=== PATIENT | female | born 1970 | race Caucasian/White ===

== ENCOUNTER 2016-12-02 20:23 | Emergency (ER) | payer OTHER ==
[~2016-12-02] VITALS: Ht 175.3 cm; Wt 90.0 kg
[2016-12-02 20:29] VITALS: BP 150/100; PULSE 91; RESP 16; O2SAT 99
--- NOTE | 2016-12-02 21:22 | ED.REPORT ---
HPI-Altered Mental Status Date of Service Dec 02, 2016 ED Provider: Marques Knutson MD The patient is a 46 year old female who presents to the ED via EMS due to altered mental status after smoking marijuana. Per EMS, the pt took off all of her clothing and ran naked through the park. She does not specifically recall the incident and states that she is very embarrassed and quite thirsty. She denies any other symptoms at the ED. She had one beer with lunch today. Nursing Notes Stated Complaint: ALTERED MENTAL STATUS Chief Complaint: Substance Abuse Nursing Notes Reviewed: Yes ([employer], meds not reconciled) Allergies: Coded Allergies: No Known Allergies (Unverified , 12/02/16) General Time Seen by MD: 21:06 Chief Complaint Other (altered mental status ) Hx Obtained From: Patient Arrived By: Ambulance Sudden in Onset?: Yes Onset Occurred: Just prior to arrival Context of Onset: Illicit drug use Symptom Duration: Since onset Severity: Current: No pain currently Recent Healthcare: No recent doctor visit, No recent hospitalization Similar Sx Previous: No Past Medical History Past Medical History denies Past Surgical History toe surgery Smoking History Never Smoker Social History Alcohol Use: "Social" Drug Use: THC Other Social History: Good social support, , Local resident Ambulatory Status Independent Review of Systems Psychiatric: Reports: Change mental status Complete sys rev & neg: except as marked. Physical Exam Initial Vital Signs Vital Signs (First) Date Time Temp Pulse Resp B/P Pulse Ox O2 Delivery O2 Flow Rate FiO2 12/02/16 20:29 36.7 91 16 150/100 99 Room Air Initial VS: Reviewed, Vital signs normal Abdomen / GI: Soft, Non-tender, No guarding, No rebound General/Constitutional: Awake, Alert, Cooperative giggly mildly intoxicated pleasantly high largest complaint is embarrassment and thirst Head / Eyes: Atraumatic, Normocephalic, PERRL Neck: Atraumatic, Supple, No meningismus Respiratory / Chest: Atraumatic, Breath sounds NL, Breath sounds = bilat Cardiovascular: Heart rate NL, Regular rhythm, Heart sounds NL Neurologic: Oriented X3, Speech NL, No motor deficits Interpretation & Diagnostics Lab Results Interpretation Test 12/02/16 20:43 Hold Urine Received (Received) Lab Results Interpretation: Udip postive for THC, otherwise negative Re-Eval/Medical Decision Med Decision/Clinical Course This is a 46-year-old female who was camping and admitted to smoking marijuana, and became confused, to call far closed, somewhat agitated a campground to the point that enforcement officers were called. The patient was then brought to the ED. She is actually much better, states she is very embarrassed, but states this is only marijuana. She denies using any other recreational drugs, reports it was marijuana by local shop. The patient has no complaints of an apartment. She is happy and content and has no complaints, except for being embarrassed. She has not agitated, she has reasonable insight and judgment. She is not suicidal or homicidal. She is able to give a good history, and when the arrives that she has been much back to normal. The rest of her physical exam was normal. Urine tox is positive only for THC. The patient remained calm and cooperative throughout the ED. This being high, she is pleasantly so. Her speech is normal, gait is normal, and cooperative. When the remaining arrives, she has been doing well long enough, indicates she is pretty much back to normal and is comfortable taking her home. I am not finding indication for extensive laboratory testing. Routine precautions reviewed. Patient's discharge good condition in the company of the . Source of Hx: Old records Differential Diagnosis: Negative: Carbon monoxide poisoning, Cerebrovascular accident, Closed head injury, Congestive heart failure, Dehydration, Delirium tremens, Hypercalcemia, Hyperthermia, Hypoglycemia, Intracerebral hemorrhage, Medication toxicity, Pseudoseizure, Seizure disorder, Subarachnoid hemorrhage, Syncope Counseled Regarding: Diagnosis, Lab results, Need for follow-up, When/why to return to ED Patient Discharge & Departure Impression: Primary Impression: Cannabis intoxication Complication of substance-induced condition: uncomplicated Qualified Code: F12.920 - Cannabis use, unspecified with intoxication, uncomplicated Additional Impression: Substance abuse Disposition: Home Discharge Condition All VS Reviewed: Yes Condition: Stable Additional Instructions: 1. You were brought to the emergency department following altered behavior that occurred after using marijuana. 2. Your urine tox revealed only marijuana. 3. Return to the emergency department if new or worsening symptoms occur. Referrals: [facility] Scribe Attestation Portion of this note were transcribed by Trish Wyatt. I, Dr. Knutson, personally performed the history, physical exam, and medical decision-making: I reviewed and confirmed the accuracy for the information in the transcribed note. Signed by: estevan Myers, 12/02/16 1029 copies to: [facility] Marques Knutson MD Dec 02, 2016 21:22 Trish Wyatt Dec 02, 2016 21:31
[2016-12-02 23:11] VITALS: BP 118/76; PULSE 77; RESP 14; O2SAT 99
== END 2016-12-02 23:12 | disposition home or self-care (01) ==
LOC: SED 20:23 → EDBD 20:23 → EDSEX 20:23 → SED 23:12
DX: F12.129 Cannabis abuse with intoxication, unspecified (principal)

== ENCOUNTER 2016-12-04 19:45 | Inpatient (IN) | payer OTHER ==
[~2016-12-04] VITALS: Ht 182.9 cm; Wt 90.9 kg
--- NOTE | 2016-12-04 19:50 | ED.REPORT ---
HPI-Psychiatric Illness Date of Service Dec 04, 2016 ED Provider: Marques Knutson MD Patient is a 46 year old female presents to the ED via EMS after threatening suicide this evening. Per police report, officers were dispatched at 1830 after her reported that she was hysterical and having a psychotic break down. Her stated that she was threatening to harm family as well as threatening to kill herself. Her reports that she has not slept in days and she admits to having smoked weed prior to this incident. After police arrived she continually made references to god and the bible, also stating that god wanted the deputies to "kill the god out of her". She held her breath out of anger multiple times during the police interactions in an attempt to suffocate herself. The patient was restrained during the incident after becoming violent with police officials. EMS reports that they have been called to deal with the patient 4x times this week. Patient was seen in the ED on 12/02 under similar circumstances, after she was found running around naked at a local campsite. This behavior was attributed to the patient recently smoking marijuana, with the Utox negative for all other substances. On arrival to the ED today the patient remembers being seen in the ED and states that "the marijuana did it" and that it was "funny weed". She claims that marijuana is "god's medicine". The patient reports that her forced her to use marijuana again and that she was "locked in bed all day". Patient reports that she has "kids in her head" and that she can hear the voice of god. She states " I have Asperger syndrome, Austism, and I am god". Patient denies a history of bipolar disorder or any other psychiatric diagnosis. She denies recent cough or illness. Nursing Notes Stated Complaint: MENTAL HEALTH EVAL Nursing Notes Reviewed: Yes ([employer], [employer] not reconciled) Allergies: Coded Allergies: No Known Allergies (Unverified , 12/04/16) Scheduled Lisinopril / HCTZ 10-12.5 mg (Lisinopril / HCTZ 10-12.5 mg) 1 Each Tablet Unknown Dose PO DAILY General Time Seen by MD: 19:49 Chief Complaint Bizarre behavior, Suicidal ideation Hx Obtained From: Other family..., EMS, Police Unable to Obtain Hx: Mental status (limited by patient's mental status) Arrived By: Ambulance Onset Occurred: 1 - 4 hours ago Context of Onset: Marijuana use Symptom Duration: Since onset Recent Healthcare: Recent doctor visit Similar Sx Previous: Yes Risk-Psychiatric Illness Suicide Risk Stratification RF Statements: Risk factors reviewed Past Medical History Past Medical History Notes: Patient was seen in the ED in recent days having had bizarre, agitated behavior following cannabis use at a campground, brought by police. Symptoms rapidly resolved, and patient was D/C home with . Past Medical History denies Past Surgical History toe surgery Smoking History Never Smoker Social History Alcohol Use: "Social" Drug Use: THC Other Social History: Good social support, , Local resident Ambulatory Status Independent Review of Systems Unable to Obtain ROS Mental status Physical Exam Initial Vital Signs Vital Signs (First) Date Time Temp Pulse Resp B/P Pulse Ox O2 Delivery O2 Flow Rate FiO2 12/04/16 19:56 36.8 98 18 174/107 96 Room Air Initial VS: Reviewed, Unavailable (no vitals on chart, ordered) Head / Eyes: Atraumatic, Normocephalic, PERRL ENT: Mucous membranes moist, Conjunctiva normal, No scleral icterus Respiratory: Breath sounds normal, Clear to auscultation, No respiratory distress Cardiovascular: Regular rate & rhythm, Heart sounds normal, Intact distal pulses Abdomen / GI: Soft, Non-tender Extremities: Vascular intact, Neuro intact, No swelling, No tenderness General/Constitutional: Awake (wide awake), Alert Neurologic: Oriented X3, No motor deficits, No sensory deficits No focal deficits Abnormal Mood/Affect: Positive: Pressured speech (and disorganized.) Patient is hyper zoroastrian. Talks about voices although it is unclear if these are auditory. She shows limited insight and judgment. She is significantly worse in comparison to previous ED visits. Skin: Color NL, Warm, Dry Bruising is present from previous ED visit with no change. No new trauma since previous ED visit. Interpretation & Diagnostics Lab Results Interpretation Result Diagram: 12/04/16202112/04/162021 Test 12/04/16 20:22 White Blood Count 8.2th/mm3 (3.8-10.1) Red Blood Count 4.92mil/mm3 (3.90-5.20) Hemoglobin 14.6g/dL (12.0-15.6) Hematocrit 42.2% (35.0-46.0) Mean Corpuscular Volume 85.8fL (81-100) Mean Corpuscular Hemoglobin 29.7pg (27.0-35.0) Mean Corpuscular Hemoglobin Concent 34.6% (32.0-37.0) Red Cell Distribution Width 13.4% (12.3-15.4) Platelet Count 200bil/L (150-400) Neutrophils (%) (Auto) 66.3% (40-74) Lymphocytes (%) (Auto) 22.5% (14-46) Monocytes (%) (Auto) 9.8% (4-12) Eosinophils (%) (Auto) 0.9% (0-5) Basophils (%) (Auto) 0.4% (0-3) Sodium Level 140mEq/L (134-144) Potassium Level 3.3mEq/L (3.5-5.2) Chloride Level 101mEq/L (97-108) Carbon Dioxide Level 20mmol/L (18-29) Blood Urea Nitrogen 7mg/dL (6-24) Creatinine 0.90mg/dL (0.57-1.00) Estimat Glomerular Filtration Rate 97mL/min (>59) Glucose Level 89mg/dL (60-99) Calcium Level 9.9mg/dL (8.5-10.1) Total Bilirubin 0.9mg/dL (0.0-1.2) Aspartate Amino Transf (AST/SGOT) 27U/L (0-50) Alanine Aminotransferase (ALT/SGPT) 20U/L (0-32) Alkaline Phosphatase 62U/L (25-150) Total Protein 7.8g/dL (6.4-8.4) Albumin 4.4g/dL (3.4-5.0) Thyroid Stimulating Hormone (TSH) 1.160uIU/mL (0.450-4.500) Human Chorionic Gonadotropin, Qual 0.572 (Negative) Hold Domingo Top Tube Received (Received) Alcohols < 10mg/dL (0-10) Lab Results Interpretation: CBC normal CMP normal U tox positive for marijuana Alcohol [address] Head Interpretation IMPRESSION: Negative head CT. Dictated by: Pool Abbott M.D. on 12/04/2016 at 21:23 Approved by: Pool Abbott M.D. on 12/04/2016 at 21:24 Study: Head CT no contrast Interpretation / Wet Read by: Interpret - Radiologist Re-Eval/Medical Decision Med Decision/Clinical Course This is a 46-year-old female brought by EMS after being agitated, combative, and suicidal-please see police affidavit. The police had to physically restrain her, but she is still trying to hit her head and kill herself, please see their note she is hyperreligious God voices and delusional and psychotic. This is a patient seen 4 days ago with fever behavior, she was mildly agitated, naked lying on a campground-and the police did have to bring her in, which point she and her stated it was secondary to marijuana-and here in the emergency department he was calm and collected and not psychotic. She was observed, and ultimately discharged. EMS indicates he had a total of 4 calls for her past few days, this one being the fourth. Today the patient is much more frankly psychotic and possibly manic - she has pressured speech, disorganized, as hyperreligious references to believe she is gone. She then changes and thinks she has Paula Trump. She is disorganized, has little no insight. She talks about the marijuana again. At this point labs were drawn. Labs are normal, CT of the head was normal. U tox was obtained via cath, and is positive only for marijuana. The patient had several escalations of behavior, making him more restless agitated and was successfully talked down, but a she jumped out of bed, and ran into another patient's room claiming that the patient in the room was her father (he was not), and a code Hartmann had to be called, the patient was placed in four point restraints and given chemical sedation-the patient was required for points, as there were no staff available for the seclusion room option alone. Given the use of 4 points, chemical sedation was administered. Ketamine was used at the lowest dose possible, with the idea that obese short acting I relative scale, to permit DCR evaluation. The disease has been contacted, and is coming out for evaluation. At this point no medical etiology has been identified. Detailed affidavit indicating the imminent danger to self has been provided by the police. He is referred to this for additional details. At this point, the family and the have not shown up in the department. The patient's being turned over to Dr. Alfred at change of shift pending DCR evaluation. Source of Hx: Old records, EMS Re-Evaluation/Progress #1: Time of Eval: 22:30 Re-Evaluation/Progress Note: Needed to urinate and was told to use the commode in her room. Patient proceeds to run down the chong into the bathroom. Re-Evaluation/Progress #2: Time of Eval: 23:02 Patient Status: Condition worsened Re-Evaluation/Progress Note: Patient got up from bed stating that she would like to use a phone. She grabs the Night [employer] phone and says that she would like to call Trevor Summers. She then ran into another patients room claiming that that patient was her father and that she was adopted. She was moved back to her room and sima domingo was called. Patient was placed in 4 point restraints. Face to face evaluation was performed. Differential Diagnosis: Positive: Substance abuse, Suicidal, Negative: Alcohol abuse Counseled Regarding: Diagnosis, Lab results Discharge & Departure Shift Change Sign-Out Patient Care Transferred: Yes Discussed Complaint(s): Yes Laboratory Evaluation: Back, reviewed by me Imaging Studies: Done, reviewed by me Additonal Information: Awaiting DCR evaluation. Impression: Primary Impression: Psychosis Psychosis type: unspecified psychosis type Qualified Code: F29 - Unspecified psychosis not due to a substance or known physiological condition Referrals: VALERIY DOYLE (PCP) Care Transferred to: Dr. Alfred Care Transferred at: 00:00 Scribe Attestation Portions of this note were transcribed by Placido Berrios and Migdalia Álvarez. I, Dr. Knutson personally performed the history, physical exam and medical decision -making; I reviewed and confirmed the accuracy of the information in the transcribed note. Signed by: Placido Berrios and Migdalia Álvarez, Scribe, 12/05/2016 and 2339 copies to: VALERIY DOYLE Matthew F MD Dec 04, 2016 19:50 Placido Berrios Dec 04, 2016 20:16 Migdalia Álvarez Dec 04, 2016 23:32
[2016-12-04 19:56] VITALS: BP 174/107; PULSE 98; RESP 18; O2SAT 96
[2016-12-04] MEDS ORDERED: LISI1TAB7 PO (19:59)
[2016-12-04 20:35] LABS: BASOPHILS % (AUTO) 0.4 % (0-3); EOSINOPHILS % (AUTO) 0.9 % (0-5); MONOCYTES % (AUTO) 9.8 % (4-12); Mean Corpuscular Hemoglobin 29.7 pg (27.0-35.0); Mean Corpuscular Volume 85.8 fL (81-100); NEUTROPHILS % (AUTO) 66.3 % (40-74); Platelet Count 200 bil/L (150-400)
--- NOTE | 2016-12-04 21:26 | DRSVH ---
PROCEDURE: CT BRAIN WITHOUT CONTRAST ([id number]) INDICATIONS: Altered LOC TECHNIQUE: Noncontrast 4.5 mm thick angled axial sections acquired from the foramen magnum to the vertex, with c oronal reformats. COMPARISON: None. FINDINGS: Image quality: Excellent. CSF spaces: Basal cisterns are patent. No extra-axial fluid collections. Ventricles are normal in size and shape. Brain: No midline shift. No intracranial masses or hemorrhage. Hartmann-white matter interface is norm al. Skull and face: Calvarium and visualized facial bones are intact, without suspicious lesions. Sinuses: Visualized sinuses and mastoids are clear. IMPRESSION: Negative head CT. Dictated by: Pool Abbott M.D. on 12/04/2016 at 21:23 Approved by: Pool Abbott M.D. on 12/04/2016 at 21:24
[2016-12-04] MEDS ORDERED: chlordiazePOXIDE 25 mg Capsule PO ONE (22:35)
[2016-12-04] MEDS ORDERED: Ketamine 100 mg/mL 5 mL Inj IM ONE (23:05)
[2016-12-04 23:15] VITALS: BP 168/97; PULSE 94; RESP 18; O2SAT 96
[2016-12-05 00:23] VITALS: BP 159/84; PULSE 78; RESP 16; O2SAT 97
[2016-12-05] MEDS ORDERED: Haloperidol 5 mg/mL Inj IM ONE ×2 (01:05→01:40)
[2016-12-05 01:50] VITALS: BP 140/89; PULSE 102; RESP 22; O2SAT 98
[2016-12-05 03:30] VITALS: BP 144/89; PULSE 80; RESP 19; O2SAT 98
[2016-12-05] MEDS ORDERED: Alum-Mag Hydrox-Simeth 30 mL Suspension PO PRN (04:10)
[2016-12-05] MEDS ORDERED: Benzocaine-Menthol Lozenge 2/Pkg PO PRN (04:10)
[2016-12-05] MEDS ORDERED: LORazepam 1 mg Tablet PO PRN (04:10)
[2016-12-05] MEDS ORDERED: Magnesium Hydroxide 10 mL Oral Concentration PO PRN (04:10)
--- NOTE | 2016-12-05 04:44 | NUR ---
Admission Note Pt is a 46 y/o female detained on an ANTOLIN for danger to self and grave disability after threatening suicide and harm to family. Pt arrived on the unit at 0415. Per ED records pt. was agitated and combative and police were afraid pt. would injure herself in the back of the police car so they called EMS. Pt arrived to ED in 4 point restraints. . She presents as hysterical, manic, with gnosticist preoccupation, making references to God and the bible, stating that God wanted the deputies to kill the God out of her and endorses AH, I hear kids in my head and I can hear the voice of God. Pt was again placed in restraints at 2300 in the ED after jumping out of bed and running into another pts room claiming that the pt. was her father and becoming combative when redirected. Pt given Ketamine 100mg IM at 2314, Ativan 2mg, Benadryl 50mg and Haldol 5mg IM at 0112 and Ativan 1mg and Haldol 5mg IM at 0145. Pt was seen in the ED on 12/02 under similar circumstances after being found running around naked at a local campsite and attributes the changes in her bx to smoking funny weed at the campsite. UDS + for marijuana. Pt denies hx of mental illness or previous psychiatric hospitalizations however this has not been confirmed by her as he is not returning phone calls to ED staff. Pt had a negative CT of the head, Labs are unremarkable except for a 3.3 K+, UDS + for THC and ETOH WNL. Pt had a BP of 174/107 on arrival but returned to normal within several hours. Pt does take Lisinopril /HCTZ 10-12.5 mg daily for hypertension. Pt also reports a HX of Aspergers. Pt has bruises to multiple areas of her body, per ED record, due to having fallen multiple times while running [place] the [place] days ago. Pt was too sedated upon arrival to sign admitting paperwork and went right to bed. Pt needs to be changed into scrubs and is still in a hospital gown. Admission completed with info obtained from hospital record.
--- NOTE | 2016-12-05 05:33 | NUR ---
[facility] admit Note Pt arrived from the ED at 0415 and was unable to complete the admit process due to heavy sedation. Pt immediately brought to room and noted asleep at 0415. Pt has been monitored every 15 minutes as directed.
[2016-12-05] MEDS ORDERED: OLANZapine Zydis ODT 5 mg Tablet PO PRN (12:40)
--- NOTE | 2016-12-05 14:10 | HP ---
[address] [address] HISTORY AND PHYSICAL PATIENT: CHANTELLE SCHMITT : 1970 MR#: [id number] ADMIT: 12/05/2016 JOB ID: [id number] IDENTIFICATION OF PATIENT: The patient is a 46-year-old female admitted through the emergency department with ANTOLIN status due to altered mental status and evidence of grave disability. Reportedly, the patient was transported to the emergency department after being found unclothed in a local park. She reportedly was unresponsive and required interventions provided by both security, emergency department physicians, and ambulance tech individuals with restraint and seclusion. She evidently did require forced medications, including two separate injections of Haldol, ketamine, Ativan, and Benadryl. CHIEF COMPLAINT: "I just wanna sleep." This is per patient report. HISTORY OF PRESENT ILLNESS: As stated above, the patient was admitted through the emergency department after significant interventions provided through the emergency department. Reported the patient had been seen in the emergency department two days prior on the as well for acute cannabis intoxication. The patient was unable to cooperate, appeared to be agitated, paranoid, actively hallucinating, and then eventually got placed in four-point restraint with forced medications. On interview attempts this morning, I have tried two separate interventions at this time. She is quite disoriented, confused. She readily identifies that she believes she is somewhere in [place]. She had slurred speech and made limited eye contact. By history, the patient has appeared to be continuation of hallucinations, delusions, and appears to be responding to internal stimulus per nursing room report. She reportedly made the indication that God wanted the deputies to kill her and get the Got out of her. She reportedly was experiencing auditory hallucination, hearing her kids in her head, and that she was also experiencing the voice of God. By history, the patient has had no prior psychiatric interventions. Her medical examination was positive for THC. Other laboratory data appeared to be fairly consistent with normal presentation. She reportedly does have a history of hypertension per nursing report, and is on doses of lisinopril/HCTZ. PAST MEDICAL HISTORY: Positive for current medications including lisinopril/HCTZ 10/12.5 mg of. No other information is obtainable. I reviewed the medical record and agree with findings. PAST PSYCHIATRIC HISTORY: Are none. SOCIAL HISTORY: Currently patient lives at home with her . Details are limited. She evidently does have children, per report. She is unable to identify her current status of usage of substances but did test positive for THC. Alcohol was reported but inconsistent with daily usage. FAMILY HISTORY: Unobtainable at this time. DEVELOPMENTAL HISTORY: Deferred. MENTAL STATUS EXAM: General appearance: Patient is acutely psychotic, disoriented, and considered gravely disabled. Her speech is limited, garbled, and nondirectional. Her mood is notably euphoric. Affect is congruent. Her thought process showed evidence of confusion, disorientation, evidence of tangential speech and thought through the emergency department report, loose and disorganized on presentation. Her thought content, she made indications of belief that the deputies were there to kill, to get the God out of her. There was no reference of suicidal or homicidal intent. She actually appears to be responding to stimulus both auditory and visual presentation. She is quite delusional, paranoid. She was alert to semi-alert but confused. Her orientation was off in all quadrants with a belief that she was somewhere in [place]. Her insight and judgment are poor. IMPRESSIONS: Austin I. 1. Psychoses, not otherwise specified. 2. Probable substance-induced psychoses. 3. Rule out delirium, not otherwise specified. 4. Cannabis use disorder with current intoxication. Austin II. Deferred. Austin III. History of hypertension. Austin IV. Stressors are noted for inability to cope and deal with current substance use. Austin V. Global Assessment of Functioning current 20. PLANS: 1. Recommendations for continuation of p.r.n. doses of medications, including Ativan 1 mg q.4 h. p.r.n. anxiety. 2. Zyprexa Zydis 10 mg q.6 p.r.n. if refuses Zyprexa IM 10 mg. 3. Continuation of hospitalization with ANTOLIN status, with probable review and court ordered presentation if the patient does not appear to clear in her mentation over the next 48 hours.
--- NOTE | 2016-12-05 14:37 | NUR ---
Factory Lay Out Engineer./ c.m. S./O.: went to pt.'s room to work on Psychosocial and Treatment plan and goals. Pt. was sleeping and didn't respond on newswriter's greeting and her name. She wasn't available for a conversation. She is ANTOLIN 72 hrs hold as GD and DTO. This is pt.'s 1st psych. hospitalization. She was positive for mj. She doesn't have hx of mental health treatment. She lives with her . A.: pt. is isolative, sleeping all morning and half of the afternoon. P.: monitor behavior, engage pt. in the unit activities, monitor for safety; follow care plan.
--- NOTE | 2016-12-05 14:58 | NUR ---
Nursing: Day shift: Isaiah was lying in bed asleep throughout the morning. He face was flushed bright pink at 1300 when show card writer entered her room. At that time, she was awake. Got up and Voided. Seemed to have a stable gait. Pt accepted unit scrub suit. Declined to come to dining room area and get a snack. A: Sedated from medications in ED last evening or prior to admission. P: Encourage pt to start engaging in open milieu. Addendum: 12/05/16 at 1506 by VERONICA MENDEZ RN Amended: Links added.
[2016-12-05 15:50] VITALS: BP 145/99; PULSE 117; RESP 16
--- NOTE | 2016-12-05 16:56 | NUR ---
Observations 0900 to 2130 Pt affect and mood was flat, isolative and happy to be here. Pt stated "its like a vacation from my seven kids and " Pt speech and eye contact was good once she woke up in the afternoon. Pt was in her room most of the shift. Pt finished admission process and signed all paperwork. Pt was shown around unit and explained the schedule, meal times, snacks, groups, etc. Pt declined attending meals in D.R. and was asleep. Pt ate a snack when she awoke around 1500. Pt maintained behavior throughout the shift. Pt was polite and cooperative. Pt keeps to herself and is minimally social with staff and peers when approached. Pt was observed every 15 minutes throughout the shift as ordered.
--- NOTE | 2016-12-05 20:05 | NUR ---
Mentation P: Pt awake in her bed. I spoke to her about her day. She stated, "I slept all day. I had a PB sandwhich." I mentioned that she had a medication due at 2100. The pt then said, "I don't want it. I sleep just fine. I don't like those medications." I attempted to explain about the purpose of Zyprexa but the pt repeatedly said, "I don't want it". E: Pt understands she does not HAVE to take medications. None will be brought to her if she does not want them. I encouraged her to drink plenty of water. She said she has done this and there is a glass of water at her bedside.
[2016-12-05] MEDS: OLANZapine Zydis ODT 5 mg Tablet PO SCH (21:00)
--- NOTE | 2016-12-05 22:51 | NUR ---
Mentation P: Pt requests shower I:Pt took a shower. Pt stayed in common area and interacted with a few of the patients and had a snack of popcorn. E: Pt appears brighter. Resting quietly
--- NOTE | 2016-12-06 03:13 | NUR ---
Observations 1900 to 0700 Pt was with visitors when my shift started. Pt went straight to her room after her visitors left. Pt came out and requested a shower. Pt went back to her room after her shower was completed and has remained in her room for the rest of the night. Pt first appeared asleep at 21:30 and was observed every 15 minutes through the night as directed.
[2016-12-06 12:42] VITALS: BP 164/114; PULSE 90; RESP 18
--- NOTE | 2016-12-06 13:27 | PROG NOTE ---
[address] [address] PROGRESS NOTE PATIENT: CHANTELLE SCHMITT : 1970 MR#: [id number] ADMIT: 12/05/2016 JOB ID: [id number] DATE: 12/06/2016 CHIEF COMPLAINT: "I am so embarrassed. I am so sorry." This is per patient report. HISTORY OF PRESENT ILLNESS: As stated above, the patient openly identified significant embarrassment and sorrow in reference to her recent behaviors under the influence of marijuana. She indicated it was the second time within several days and that she basically feels that she has learned many things. She indicates that the only reason she used it was under her 's suggestion, and she feels that it was a very, very wrong thing to do. 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 She indicates that she has considered writing about her experiences and sharing them with the public. OBJECTIVE: On mental status exam, she was bright, cooperative, interactive. She made good eye contact throughout. She had a positive response to sedation with the Zyprexa and was able to sleep through the night. She indicates that her thoughts have considerably calmed. She denied any evidence of acute distress. She was alert, oriented to time and place. Her attention and concentration were notably intact. Her memory was intact in the short term, terminal gauger, recent. Insight and judgment were gaining significantly. PHYSICAL EXAMINATION: Vital signs of current. Temperature is 36.9, pulse 117, respirations 16, BP 145/99. MEDICATION REVIEW: Included Zyprexa 10 mg q.h.s. She evidently did refuse the medication last evening and slept well without it. ASSESSMENT: AXIS I Substance-induced psychoses, resolving. AXIS II Deferred. AXIS III None. AXIS IV Stressors are noted for acute disturbance with cannabis induction. AXIS V Global Assessment of Functioning current 40. PLAN: 1. Recommendation is for probable discharge tomorrow. 2. The patient was encouraged to continue utilization of Zyprexa as needed for sleep disturbance and encouraged that typically most side effects from the marijuana will fade over the next month. The patient was highly encouraged to avoid any future usage.
--- NOTE | 2016-12-06 13:29 | NUR ---
Bright and positive affect Pt. reported "in very good mood". She was without any hallucination and anxiety. She took a shower as it's her goal for today. She interacted with others appropriately.
--- NOTE | 2016-12-06 13:41 | NUR ---
Command Post Craftsman./ c.m. S.:"I'm a little bored." O.: met with pt. to complete Psychosocial and Treatment plan and goals. Pt. is ANTOLIN 72 hrs hold. She slept well last night. She didn't know why she was here. She didn't remember anything that happened to her. She denied SI/HI, denied AH/VH or paranoid/delusional thoughts. She described her mood as "great." She denied depression or anxiety. She wanted to read her fpc paper and copy writer made a copy for her from the chart. Pt. was wondering about her legal status and a date of discharge. She was in and out of her room. She was eating, talking to peers and working on a puzzle. A.: pt. is cooperative, pleasant, social with peers, has a bright affect. P.: monitor behavior, work on Safety plan and follow up; follow care plan.
--- NOTE | 2016-12-06 16:55 | NUR ---
Observations [id number] Pt was awake upon start of shift. Pt appears to be social and sharing with other pt's regarding the reason she is here and "now I'm fine, I don't really belong here any longer with five kids at home." Pt shared she is anxious to leave the unit, and requested to use the phone to call her retail bakery manager. I shared with her that it looks as though she will be leaving tomorrow, but pt still wanted to attempt to leave sooner verses later. Pt attended all meals, eating 75%. Pt attended groups and meeting. She was observed every 15 minutes of shift as directed.
--- NOTE | 2016-12-06 16:59 | DRSVH ---
PROCEDURE: X-RAY LEFT HAND, MINIMUM THREE VIEWS ([id number]) INDICATIONS: JAMMED RING FINGER ON LEFT HAND NOW TURNING BLACK TECHNIQUE: 3 views of the hand(s) acquired. COMPARISON: None. FINDINGS: Bones: No fractures or dislocations. Carpal bones are normally aligned. No suspicious bony lesions . Soft tissues: No suspicious soft tissue calcifications. IMPRESSION: No fracture or dislocation. If clinical symptoms persist or clinical suspicion for patho logy is high, a repeat examination in 7-10 days is suggested for further evaluation. Dictated by: Pool Abbott M.D. on 12/06/2016 at 16:56 Approved by: Pool Abbott M.D. on 12/06/2016 at 16:57
--- NOTE | 2016-12-06 18:52 | NUR ---
Nurses Note Evening Patient complained of pain and discoloration on her L hand ring finger after alleged injury from a football and Pilates. Patients' finger was purple black which was painful and received Ibuprofen 800mg for same. Patients' back of her L hand was also discolored due to her episode [place].Patients' thoughts have been clear,linear. Her mood irritable with frequent c/o her needs not being met,wanting to leave,wanting to call her sports attorney. Patient did have a X-ray of her L hand findings of no fracture or dislocation. Her finger was splinted and taped. She enjoyed a visit from 3 girlfriends which brightened her mood. Will maintain q 15min. checks for safety and support. Addendum: 12/06/16 at 1914 by GEORGE RAMOS RN Amended: Links added.
[2016-12-06] MEDS: OLANZapine Zydis ODT 5 mg Tablet PO SCH (20:48)
--- NOTE | 2016-12-07 02:12 | NUR ---
Observations 1900 to 0700 Pt was with visitors when my shift started. Pt went straight to her room after her visitors left. Pt was polite and cooperative with staff. Pt first appeared asleep at 21:45 and was observed every 15 minutes through the night as directed.
--- NOTE | 2016-12-07 05:21 | NUR ---
Sleep Adequate sleep through the night with no noted distress or awakening per protocol checks. Total sleep 7.5+ hours.
--- NOTE | 2016-12-07 09:30 | PCM.DIMED ---
Discharge Instructions Date of Service Dec 07, 2016 Dates of Hospitalization Dec 05, 2016 at 04:01 Discharge Diagnosis Discharge Diagnosis Substance Induced Psychosis Cannabis Use DO Diet No restrictions Activity No restrictions José Manuel Landry DO Dec 07, 2016 09:30
[2016-12-07] MEDS ORDERED: OLAN10TA19 PO (09:33)
--- NOTE | 2016-12-07 12:01 | NUR ---
Nursing Discharge Note: Patient cooperative with discharge process. Acknowledges understanding of d/c instructions and has a copy with them upon leaving unit at 1152. Belongings accounted for and with patient. Prescriptions faxed to patients pharmacy. Patient denies harmful thoughts and hallucinations at this time. verbalized dissatisfaction at patient leaving "so early after she threatened to kill all of us." Per patient "we have to talk about all of this sometime." Smiled at staff when she entered the elevator with family.
[2016-12-07 12:12] VITALS: BP 149/93; PULSE 101; RESP 16
--- NOTE | 2016-12-07 13:17 | DIS ---
[address] [address] DISCHARGE SUMMARY PATIENT: CHANTELLE SCHMITT : 1970 MR#: [id number] ADMIT: 12/05/2016 JOB ID: [id number] DIS: DATE: 12/07/2016 ADMITTING DIAGNOSES: AXIS I: 1. Psychotic disorder, not otherwise specified. 2. Probable substance-induced psychoses. 3. Rule out delirium, not otherwise specified. 4. Cannabis use disorder with current intoxication. AXIS II: Deferred. AXIS III: History of hypertension. AXIS IV: Stressors are noted for inability to cope and deal with current substance use. AXIS V: Global Assessment of Functioning of current 20. DISCHARGE DIAGNOSES: AXIS I: 1. Substance-induced psychoses. 2. Cannabis use disorder, episodic. AXIS II: Deferred. AXIS III: History of hypertension. AXIS IV: Stressors are noted for inability to cope and deal with current substance use. AXIS V: Global Assessment of Functioning of current 50. REASON FOR ADMISSION: Patient was a 46-year-old female admitted through the emergency department under ANTOLIN status due to altered mental status and evidence of grave disability. Reportedly, patient was transported to the emergency department after being [place] unclothed [place] local [place]. During the course of hospitalization, patient was medicated with Zyprexa, eventually titrated to 10 mg q.h.s. with additional p.r.n.'s. Throughout hospital course, patient did have significant clearing of her mentation with open recognition of recent usage of marijuana. Coincidentally, the patient had an episode that required emergency room evaluation two days prior to interventions. During the course of hospitalization, patient identified significant difficulties with blackout presentation and total unawareness of her previous difficulties. She reportedly did undergo an x-ray of her hand after injuring with exercise on the unit which showed no evidence of a fracture but probable strain. Throughout hospital course, patient openly identified that she should no longer use marijuana. She indicated that she had two separate episodes that clearly indicated that she was intolerant. She identified that she did not feel the need to pursue chemical dependency treatment due to the fact that it has only been twice and indicated that she would never do it again. 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 She indicated that she was going to write a followup story indicating that there are significant risk factors and expressing her own episodes. She showed significant gains of insight and good judgment. CONDITION AT TIME OF DISCHARGE: On her mental status exam, she was bright, cooperative, interactive. She denied any evidence of acute distress. Her speech was of normal tone, frequency, and volume. Her mood was neutral. Her affect was congruent. Her thought process showed no evidence of racing thoughts, flight of ideas, loose or disconnected thinking. Her thought content: She denied any evidence of current suicidal, homicidal ideation. She denied any active hallucinations or delusions. She was alert, oriented to person, place, time, situation. Attention and concentration intact. Her memory intact in the short term, correction, recent. Insight and judgment are fair. DISCHARGE PLANS: Include: 1. Recommendation for continuation of Zyprexa 10 mg q.h.s. one month supply, no refills. Order was e-scribed to [facility]'s pharmacy in [place]. 2. Follow up with her family practitioner, Dr. Tucker, on the of this month for ongoing medical care with recent strain of her finger, as well as possible refills for the Zyprexa if so warranted. 3. Patient was highly encouraged to maintain a clean and sober lifestyle with avoidance of any further hallucinogenic trials.
--- NOTE | 2016-12-07 15:26 | NUR ---
Counseling/Underliner: S: "How I behaved after smoking marijuana was scary." O: Patient slept 7.5+ hours last night per staff. She denies S/I and H/I. She also denies auditory and visual hallucinations. Depression s 0/10 and anxiety is 0/10. When asked her mood, patient stated, "I feel really good." A: Patient is cooperative, hopeful, brighter, future oriented. P: Follow care plan, coordinate out-patient providers, monitor behavior. Addendum: 12/07/16 at 1550 by JUSTINO FARIAS [facility] Out-patient appointment: Dr. Gerald Tucker, [facility], 12/12/16 @ 10:15am.
== END 2016-12-07 11:52 | disposition home or self-care (01) | DRG 897 ==
LOC: SED 19:45 → MHC 12-05 04:01
PROVIDERS: ADMIT Psychiatry & Neurology Psychiatry; ATTEND Psychiatry & Neurology Psychiatry
DX: F12.959 Cannabis use, unspecified with psychotic disorder, unspecified (principal); R45.851 Suicidal ideations; I10 Essential (primary) hypertension

== ENCOUNTER 2017-01-01 10:33 | Emergency (ER) | payer OTHER ==
[~2017-01-01] VITALS: Ht 177.8 cm; Wt 90.9 kg
[~2017-01-01 10:33] MED LIST: LISI1TAB7 PO; OLAN10TA19 PO
[2017-01-01 10:36] VITALS: BP 108/78; PULSE 82; RESP 16; O2SAT 100
--- NOTE | 2017-01-01 11:16 | ED.REPORT ---
HPI-Sore Throat ONLY HPI/PE done January 01, 2017 ED Provider: Doc,Ed MD History of Present Illness: 46-year-old female here for accidentally swallowing a seed. 3 days ago she was drinking sparkling water with a [place] in it and think she inhaled a seed "down the wrong tube". He has been forcibly trying to get the seed up with coughing. Does not feel like she inhaled it in her lung. She has gotten bile and phlegm up but no seed. She feels like it is in her upper chest/sternal area. She is not short of breath no fever no cough, feels well. Sensation of annoyance in lower throat and chest immediatly started after swallowing seed. Has HTN, non smoker Nursing Notes Stated Complaint: SEED IN THROAT Chief Complaint: Chest Pain-Non Cardiac Nature Nursing Notes Reviewed: Yes Allergies: Coded Allergies: No Known Allergies (Unverified , 12/04/16) Scheduled Lisinopril / HCTZ 10-12.5 mg (Lisinopril / HCTZ 10-12.5 mg) 1 Each Tablet 1 TABLET PO DAILY Olanzapine (Olanzapine) 10 Mg Tablet 10 MG PO HS Pantoprazole DR (Protonix) 20 Mg Tablet 20 MG PO BID General Time Seen by MD: 11:08 Chief Complaint Other (sensation of seed in chest) Hx Obtained From: Patient Onset Occurred: 3 days ago Symptom Duration: Constant Severity: Current: No pain currently Severity: Maximum: No pain Context: Immunization Status General: All up to date Similar Sx Previous: No Past Medical History Past Medical History Notes: Patient was seen in the ED in recent days having had bizarre, agitated behavior following [place], brought by police. Symptoms rapidly resolved, and patient was D/C home with . Past Medical History HTN Past Surgical History toe surgery Smoking History Never Smoker Social History Alcohol Use: "Social" Drug Use: THC Other Social History: Good social support, , Local resident Ambulatory Status Independent Review of Systems Review of Systems Note: sensation of seed in upper chest Basic Review of Systems Eyes: Vision NL, No discharge Cardiovascular: No chest pain, No dyspnea on exertion, No orthopnea, No parox noct dyspnea, No palpitations Musculoskeletal: No extremity swelling, No extremity pain, Full range of motion , Joints NL Psychiatric: Normal thought content Constitutional: Denies: Chills, Fever Complete sys rev & neg: except as marked. Physical Exam Initial Vital Signs Vital Signs (First) Date Time Temp Pulse Resp B/P Pulse Ox O2 Delivery O2 Flow Rate FiO2 01/01/17 10:36 36.0 82 16 108/78 100 Room Air Initial VS: Reviewed, Vital signs normal Head / Eyes: Atraumatic, Normocephalic, PERRL Respiratory: Breath sounds normal, Clear to auscultation, No respiratory distress Cardiovascular: Regular rate & rhythm, Heart sounds normal, Intact distal pulses Skin: Warm, Dry, No cyanosis Neurologic: Alert Psychiatric: Mood/affect normal, Behavior normal, Normal thought content Interpretation & Diagnostics Interpretation & Diagnostics: [facility] Diagnostic [place] [address] Patient Name: CHANTELLE SCHMITT MR#: [id number] [place] [facility] [place] Phys: Adrianne Floyd Date of Service: 01/01/17 1113 PROCEDURE: X-RAY CHEST, TWO VIEWS ([id number]) INDICATIONS: possible seed in lungs TECHNIQUE: 2 views of the chest were acquired. COMPARISON: None. FINDINGS: Surgical changes and devices: None. Lungs and pleura: No pleural effusions or pneumothorax. Lungs are clear. No radiopaque foreign bodies or focal atelectasis identified. Mediastinum: Mediastinal contours are normal. Heart size is normal. Bones and chest wall: No suspicious bony abnormalities. Soft tissues appear unremarkable. IMPRESSION: 1. No radiopaque foreign bodies or focal atelectasis identified. Re-Eval/Medical Decision Med Decision/Clinical Course discussed case with Dr Smart, will try GI cocktail GI cocktail with no effect, sensation still "annoying in upper chest" Dr Sandoval consulted. put on PPI, f/u outpt for diagnostic endoscopy. Discharge & Departure Shift Change Sign-Out Imaging Studies: Imaging discussed Primary Impression: Esophageal foreign body Encounter type: initial encounter Qualified Code: T18.108A - Unspecified foreign body in esophagus causing other injury, initial encounter Disposition: Home Discharge Condition All VS Reviewed: Yes Condition: Stable Patient Instructions: Esophageal Foreign Body (GEN) Additional Instructions: Take antacid as prescribed. followup with GI, call monday for appointment for upper endoscopy. return to ER for fever, severe pain, chest pain, shortness of breath, or any concerning change in symptoms. Referrals: [facility] EDSupervising Provider for APC: David Leach Linnea K ARNP January 01, 2017 11:16
--- NOTE | 2017-01-01 12:08 | DRSVH ---
PROCEDURE: X-RAY CHEST, TWO VIEWS ([id number]) INDICATIONS: possible seed in lungs TECHNIQUE: 2 views of the chest were acquired. COMPARISON: None. FINDINGS: Surgical changes and devices: None. Lungs and pleura: No pleural effusions or pneumothorax. Lungs are clear. No radiopaque foreign bod ies or focal atelectasis identified. Mediastinum: Mediastinal contours are normal. Heart size is normal. Bones and chest wall: No suspicious bony abnormalities. Soft tissues appear unremarkable. IMPRESSION: 1. No radiopaque foreign bodies or focal atelectasis identified. Dictated by: Prince Stone M.D. on 01/01/2017 at 12:00 Approved by: Prince Stone M.D. on 01/01/2017 at 12:01
[2017-01-01] MEDS ORDERED: LidocaineVisc 2%:Antacid 1:1 10 mL Syringe PO SCH (12:25)
[2017-01-01 12:48] VITALS: BP 108/75; PULSE 78; RESP 18; O2SAT 99
[2017-01-01] MEDS ORDERED: PANT20T PO (13:23)
== END 2017-01-01 13:33 | disposition home or self-care (01) ==
LOC: SED 10:33
DX: T18.108A Unspecified foreign body in esophagus causing other injury, initial encounter (principal); X58.XXXA Exposure to other specified factors, initial encounter; Y93.89 Activity, other specified; Y92.9 Unspecified place or not applicable; Y99.8 Other external cause status; I10 Essential (primary) hypertension